=== PATIENT | male | born 1965 | race Two or more races ===

== ENCOUNTER 2019-10-08 19:27 | Emergency (ER) | payer OTHER ==
--- NOTE | 2019-10-08 20:31 | ER Document Report ---
ED Medical Screen (RME) - General Chief Complaint: Swollen Glands Stated Complaint: LUMPS RIGHT SIDE OF FACE AND UNDER THROAT Time Seen by Provider: 10/08/19 20:22 Notes: Patient is a 54-year-old male who presents to the emergency department with right neck and anterior neck swelling. Patient states that his throat is sore. He was seen in [place] on 02 October and was placed on antibiotics. They did a CT of the neck at that time. At that time, he only had swelling to the right side of his neck, but 2 days ago a new "lump" showed up at his anterior neck. Exam: Edema noted to right lateral neck near mandible/parotid gland area. I have greeted and performed a rapid initial assessment of this patient. A comprehensive ED assessment and evaluation of the patient, analysis of test results and completion of medical decision making process will be conducted by an additional ED providers. TRAVEL OUTSIDE OF THE [place] IN LAST 30 DAYS: No - Related Data Home Medications: probiotic. hydrocdone w acet 5-325. augmentin q12h. sulfa 2 tab daily Past Medical History - Social History Frequency of alcohol use: Social Physical Exam - Vital signs Vitals: Temp Pulse Resp BP Pulse Ox 98.7 F 72 20 126/63 H 97 10/08/19 20:10 10/08/19 20:10 10/08/19 20:10 10/08/19 20:10 10/08/19 20:10 Course - Vital Signs Vital signs: Temp Pulse Resp BP Pulse Ox 98.7 F 72 20 126/63 H 97 10/08/19 20:19 10/08/19 20:19 10/08/19 20:19 10/08/19 20:19 10/08/19 20:19
[2019-10-08 21:40] LABS: ABSOLUTE BASOPHILS # (AUTO) 0.1 10^3/uL (0.0-0.2); ABSOLUTE EOSINOPHILS # (AUTO) 0.2 10^3/uL (0.0-0.6); ABSOLUTE LYMPHOCYTES (AUTO) 1.4 10^3/uL (0.5-4.7); ABSOLUTE MONOCYTES (AUTO) 0.7 10^3/uL (0.1-1.4); ABSOLUTE NEUT (AUTO) 4.4 10^3/uL (1.7-8.2); BASOPHILS % (AUTO) 0.9 % (0-2); EOSINOPHILS % (AUTO) 3.3 % (0-6); HEMATOCRIT 37.9 % (37.9-51.0); HEMOGLOBIN 12.8 g/dL (13.5-17.0); LYMPHOCYTES % (AUTO) 20.1 % (13-45); MEAN CORPUSCULAR HEMOGLOBIN 30.2 pg (27.0-33.4); MEAN CORPUSCULAR HGB CONC 33.7 g/dL (32.0-36.0); MEAN CORPUSCULAR VOLUME 90 fl (80-97); MONOCYTES % (AUTO) 10.3 % (3-13); PLATELET COUNT 242 10^3/uL (150-450); RED BLOOD COUNT 4.24 10^6/uL (4.35-5.55); RED CELL DISTRIBUTION WIDTH 13.9 % (11.5-14.0); SEGMENTED NEUTROPHILS % (AUTO) 65.4 % (42-78); TOTAL CELLS COUNTED % (AUTO) 100 %; WHITE BLOOD COUNT 6.8 10^3/uL (4.0-10.5)
[2019-10-08 21:57] LABS: ALBUMIN 4.1 g/dL (3.5-5.0); ALKALINE PHOSPHATASE 89 U/L (38-126); ANION GAP 10 (5-19); ASPARTATE AMINO TRANSFERASE 26 U/L (17-59); BILIRUBIN,DIRECT 0.1 mg/dL (0.0-0.4); BILIRUBIN,TOTAL 0.3 mg/dL (0.2-1.3); BLOOD UREA NITROGEN 12 mg/dL (7-20); CALCIUM 8.9 mg/dL (8.4-10.2); CARBON DIOXIDE 27 mmol/L (22-30); CHLORIDE 102 mmol/L (98-107); GLUCOSE 121 mg/dL (75-110); TOTAL PROTEIN 7.6 g/dL (6.3-8.2)
--- NOTE | 2019-10-09 00:07 | ER Document Report ---
ED ENT - General Chief Complaint: Swollen Glands Stated Complaint: LUMPS RIGHT SIDE OF FACE AND UNDER THROAT Time Seen by Provider: 10/08/19 20:22 Primary Care Provider: JIA DAVILA DO [ASSOCIATE] - 10/12/19 Notes: Patient is a 54-year-old male that comes to the emergency department for chief complaint of swelling to the right side of his neck just below the edge of his mandible and underneath the ear. He states that he was seen in [place] on October 02, started on Augmentin and [place], he states he had a very sore throat at that time, he states the sore throat has resolved almost completely, he is eating and drinking normally, however the area over the right side of his neck/face has started swelling and becoming very significantly swollen over the past 3 days. He denies pain to the area unless he touches it. He denies fever/chills, nausea/vomiting, headache. He denies any other symptoms. He take s no daily prescribed medications, he denies any diagnosed medical history, he denies smoking or frequent alcohol. His son is at bedside. TRAVEL OUTSIDE OF THE [place] IN LAST 30 DAYS: No - Related Data Home Medications: probiotic. hydrocdone w acet 5-325. augmentin q12h. sulfa 2 tab daily Past Medical History - General Information source: Patient, Relative - Social History Smoking Status: Never Smoker Frequency of alcohol use: Social Lives with: Family Family History: Reviewed & Not Pertinent Patient has suicidal ideation: No Patient has homicidal ideation: No - Immunizations Hx Diphtheria, Pertussis, Tetanus Vaccination: Yes Review of Systems - Review of Systems Constitutional: No symptoms reported EENT: See HPI Cardiovascular: No symptoms reported Respiratory: No symptoms reported Gastrointestinal: No symptoms reported Genitourinary: No symptoms reported Male Genitourinary: No symptoms reported Musculoskeletal: No symptoms reported Skin: No symptoms reported Hematologic/Lymphatic: No symptoms reported Neurological/Psychological: No symptoms reported Physical Exam - Vital signs Vitals: Temp Pulse Resp BP Pulse Ox 98.7 F 72 20 126/63 H 97 10/08/19 20:10 10/08/19 20:10 10/08/19 20:10 10/08/19 20:10 10/08/19 20:10 - Notes Notes: GENERAL: Alert, interacts well. No acute distress. HEAD: Normocephalic, atraumatic. EYES: Pupils equal, round, and reactive to light. Extraocular movements intact. ENT: Oral mucosa moist, tongue midline. Oropharynx unremarkable. Airway patent. Nares patent, no nasal septal hematoma, TM's intact. There is a firm mildly tender swollen area just below the edge of the mandible on the right side at the neck. No nearby lymphadenopathy noted, no other concerning findings, no evidence of submandibular swelling. NECK: Full range of motion. Supple. Trachea midline. LUNGS: Clear to auscultation bilaterally, no wheezes, rales, or rhonchi. No respiratory distress. HEART: Regular rate and rhythm. No murmur ABDOMEN: Soft, non-tender. Non-distended. EXTREMITIES: Moves all 4 extremities spontaneously. No edema, normal radial and dorsalis pedis pulses bilaterally. No cyanosis. BACK: no cervical, thoracic, lumbar midline tenderness. No saddle anesthesia, normal distal neurovascular exam. Moves all extremities in full range of motion. NEUROLOGICAL: Alert and oriented x3. Normal speech. Cranial nerves II through XII grossly intact. PSYCH: Normal affect, normal mood. SKIN: Warm, dry, normal turgor. No rashes or lesions noted. Course - Re-evaluation Re-evalutation: On evaluation patient has a normal oral pharyngeal exam, he does have a large swollen area below the right mandible but this is mildly tender, does not appear indurated or fluctuant, there is no surrounding erythema or significant tend erness. No fever. CBC, chemistry unremarkable. I did review CT from triage, this shows indeterminate area in the same location which could be infectious or inflammatory but is not obviously not an abscess or mass. I discussed this with patient. I discussed with Dr. Kirkpatrick. Recommendation is to give patient a dose of dexamethasone, complete Augmentin, if symptoms resolve follow-up with primary care, if symptoms continue start the Bactrim and follow-up with ENT. I discussed this at length with patient and son at bedside. They state appreciation and agreement. Discussed return precautions, they state understanding and agreement. - Vital Signs Vital signs: Temp Pulse Resp BP Pulse Ox 98.1 F 63 16 107/64 96 10/09/19 03:11 10/09/19 03:11 10/09/19 03:11 10/09/19 03:11 10/09/19 03:11 - Laboratory Result Diagrams: 10/08/19 20:56 10/08/19 20:56 Laboratory results interpreted by me: 10/08/19 10/08/19 20:56 20:56 RBC 4.24 L Hgb 12.8 L Glucose 121 H Discharge - Discharge Clinical Impression: Neck swelling Condition: Stable Disposition: HOME, SELF-CARE Additional Instructions: Your imaging shows an inflamed area next to the saliva gland. We believe at this time this is a lymph node because of your recent throat infection, you have been treated for this, this should simply resolve. However if this continues to be swollen or tender please take the additional antibiotic and follow-up with the ENT referral. Come back if you worsen in any way including difficulty breathing or swallowing, worsening pain, increased swelling, fever, or any other concerning or worsening symptoms. Prescriptions: Sulfamethoxazole/Trimethoprim [Bactrim Ds Tablet] 1 each PO BID #14 tablet Forms: Return to Work Referrals: JIA DAVILA DO [ASSOCIATE] - 10/12/19
--- NOTE | 2019-10-09 01:45 | RADIOLOGY REPORT (SQ) ---
CT neck with contrast on 10/09/2019 at 12:39 AM CLINICAL INDICATION: Right neck swelling TECHNIQUE: Multiple axial images are obtained throughout the neck following the administration of IV contrast, 52 ml of Omnipaque 350 contrast was administered intravenously without complication. This exam was performed according to our departmental dose-optimization program, which includes automated exposure control, adjustment of the mA and/or kV according to patient size and/or use of iterative reconstruction technique. Total DLP is 427.35 mGy*cm. COMPARISON: None FINDINGS: There is evidence of calcified granulomatous disease in the upper lungs. The lung apices are otherwise clear. The epiglottis and airway is unremarkable. There is no prevertebral soft tissue swelling. Along the inferior edge of the right parotid gland likely external to the right parotid gland is small irregular soft tissue density abnormality with adjacent fat stranding just anterior to the right sternocleidomastoid muscle and deep to the platysma muscle. This measures approximately 1.4 x 1.0 x 1.4 cm. Due to the adjacent fat stranding favor this to be infectious or inflammatory and this may be reactive lymph node with mild adjacent cellulitis. Malignant process is not excluded but felt less likely. Would recommend treatment for infection and short-term follow-up to verify this improves or resolves. No other adenopathy is noted in the neck. No mucosal lesion is noted. No other neck mass or fluid collection is noted. The patient is status post a right mastoidectomy. No other bony abnormality is noted. IMPRESSION: Likely inferior to the right parotid gland is irregular soft tissue density abnormality with adjacent fat stranding. Favor this to be infectious or inflammatory in nature as above. Consider treatment for infection and short-term follow-up CT to verify this improves or resolves.
[2019-10-09] MEDS ORDERED: DEXAMETHASONE SOD PHOS INJ 10 MG/1 ML VIAL IV ONE (02:49)
[2019-10-09 03:13] VITALS: BP 107/64
== END 2019-10-09 03:11 | disposition home or self-care (01) ==
LOC: ER 19:27
DX: R22.1 Localized swelling, mass and lump, neck (principal); J02.9 Acute pharyngitis, unspecified; Z79.899 Other long term (current) drug therapy
CPT/HCPCS: 99283; 96374; 36415; 85025; 80053; 70491; J1100

== ENCOUNTER 2019-10-22 21:07 | Emergency (ER) | payer OTHER ==
--- NOTE | 2019-10-22 21:31 | ER Document Report ---
ED Medical Screen (RME) - General Stated Complaint: CHEST PAIN,STOMACH PAIN,BACK PAIN,THROAT PAIN Time Seen by Provider: 10/22/19 21:29 TRAVEL OUTSIDE OF THE [place] IN LAST 30 DAYS: No - HPI Notes: 10/22/19 21:50 54-year-old male to the emergency department with complaints of chest pain that radiates into his neck that began today. Denies associated shortness of breath. Does report that he felt a little bit dizzy with it. He states initially thought it was related to the cold. He states that when he would put on a jacket he would feel little bit better. However this afternoon it became more constant and also radiated into his abdomen. He states he has a history of anxiety but this feels a little bit different. He states he does not smoke. He does have a history of some elevated blood pressure but he is not on any blood pressure medicines. Patient is Georgian-speaking only and Martti was used to help interpret. Performed a medical screening exam on patient and determined he will need further evaluation and management by main side provider. I have placed initial orders to help expedite patient's care. Past Medical History - Immunizations Hx Diphtheria, Pertussis, Tetanus Vaccination: Yes Physical Exam - Vital signs Vitals: Temp Pulse Resp BP Pulse Ox 99.5 F 75 18 154/84 H 96 10/22/19 21:28 10/22/19 21:28 10/22/19 21:28 10/22/19 21:28 10/22/19 21:28 Course - Vital Signs Vital signs: Temp Pulse Resp BP Pulse Ox 99.5 F 75 18 154/84 H 96 10/22/19 21:28 10/22/19 21:28 10/22/19 21:28 10/22/19 21:28 10/22/19 21:28
--- NOTE | 2019-10-22 22:42 | RADIOLOGY REPORT (SQ) ---
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 COMPARISON: None. FINDINGS: Normal heart size without pulmonary edema. The lungs are clear. No pleural effusions or pneumothorax. IMPRESSION: No evidence of acute cardiopulmonary disease.
[2019-10-22 23:28] LABS: ABSOLUTE EOSINOPHILS # (AUTO) 0.2 10^3/uL (0.0-0.6); ABSOLUTE LYMPHOCYTES (AUTO) 1.4 10^3/uL (0.5-4.7); ABSOLUTE MONOCYTES (AUTO) 0.7 10^3/uL (0.1-1.4); ABSOLUTE NEUT (AUTO) 4.6 10^3/uL (1.7-8.2); BASOPHILS % (AUTO) 0.7 % (0-2); EOSINOPHILS % (AUTO) 2.9 % (0-6); HEMATOCRIT 38.1 % (37.9-51.0); HEMOGLOBIN 13.3 g/dL (13.5-17.0); LYMPHOCYTES % (AUTO) 19.6 % (13-45); MEAN CORPUSCULAR HEMOGLOBIN 31.1 pg (27.0-33.4); MEAN CORPUSCULAR VOLUME 89 fl (80-97); MONOCYTES % (AUTO) 9.9 % (3-13); PLATELET COUNT 274 10^3/uL (150-450); RED BLOOD COUNT 4.29 10^6/uL (4.35-5.55); RED CELL DISTRIBUTION WIDTH 13.7 % (11.5-14.0); SEGMENTED NEUTROPHILS % (AUTO) 66.9 % (42-78); TOTAL CELLS COUNTED % (AUTO) 100 %; WHITE BLOOD COUNT 6.9 10^3/uL (4.0-10.5)
[2019-10-22 23:43] LABS: ALBUMIN 4.3 g/dL (3.5-5.0); ALKALINE PHOSPHATASE 96 U/L (38-126); ANION GAP 12 (5-19); ASPARTATE AMINO TRANSFERASE 23 U/L (17-59); BILIRUBIN,DIRECT 0.1 mg/dL (0.0-0.4); BILIRUBIN,TOTAL 0.3 mg/dL (0.2-1.3); BLOOD UREA NITROGEN 11 mg/dL (7-20); CALCIUM 9.3 mg/dL (8.4-10.2); CARBON DIOXIDE 26 mmol/L (22-30); CHLORIDE 101 mmol/L (98-107); GLUCOSE 117 mg/dL (75-110); POTASSIUM 3.7 mmol/L (3.6-5.0); TOTAL PROTEIN 7.8 g/dL (6.3-8.2)
[2019-10-23] MEDS ORDERED: KETOROLAC TROMETHAMINE 60 MG/2 ML SDV IM ONE (02:27)
--- NOTE | 2019-10-23 02:37 | ER Document Report ---
ED General - General Chief Complaint: Chest Pain Stated Complaint: CHEST PAIN,STOMACH PAIN,BACK PAIN,THROAT PAIN Time Seen by Provider: 10/22/19 21:29 Notes: [employer] was used along with Google translate. 54-year-old male presents with chest pain and right upper quadrant abdominal pain. Patient has a history of hypertension. Patient states that the pain does radiate into his neck. Patient denies being a smoker. Patient states only past medical history is hypertension and anxiety. Patient denies any nausea/vomiting/diarrhea, shortness of breath, or fevers chills. TRAVEL OUTSIDE OF THE [place] IN LAST 30 DAYS: No - Related Data Allergies/Adverse Reactions: No Known Allergies Allergy (Unverified 10/23/19 03:14) Past Medical History - Social History Smoking Status: Former Smoker Frequency of alcohol use: Occasional Drug Abuse: None Family History: Reviewed & Not Pertinent Patient has suicidal ideation: No Patient has homicidal ideation: No - Immunizations Hx Diphtheria, Pertussis, Tetanus Vaccination: Yes Review of Systems - Review of Systems Notes: Constitutional: Negative for fever. HENT: Negative for sore throat. Eyes: Negative for visual changes. Cardiovascular: Positive for chest pain. Respiratory: Negative for shortness of breath. Gastrointestinal: Positive for abdominal pain. Negative for vomiting or diarrhea. Genitourinary: Negative for dysuria. Musculoskeletal: Negative for back pain. Skin: Negative for rash. Neurological: Negative for headaches, weakness or numbness. 10 point ROS negative except as marked above and in HPI. Physical Exam - Vital signs Vitals: Temp Pulse Resp BP Pulse Ox 99.5 F 75 18 154/84 H 96 10/22/19 21:28 10/22/19 21:28 10/22/19 21:28 10/22/19 21:28 10/22/19 21:28 - Notes Notes: GENERAL: Well-appearing, well-nourished and in no acute distress. HEAD: Atraumatic, normocephalic. EYES: Pupils equal round and reactive to light, extraocular movements intact, sclera anicteric, conjunctiva are normal. NECK: Normal range of motion, supple without lymphadenopathy or JVD. LUNGS: Breath sounds clear to auscultation bilaterally and equal. No wheezes rales or rhonchi. HEART: Regular rate and rhythm without murmurs, rubs or gallops. ABDOMEN: Soft, tenderness to right upper quadrant.. No guarding, no rebound. No masses appreciated. EXTREMITIES: Normal range of motion, no pitting or edema. No clubbing or cyanosis. NEUROLOGICAL: Cranial nerves II through XII grossly intact. Normal speech, normal gait. PSYCH: Normal mood, normal affect. SKIN: Warm, Dry, normal turgor, no rashes or lesions noted. Course - Re-evaluation Re-evalutation: 10/23/19 #1 Chest pain: Presentation of chest pain in an otherwise well appearing patient. Low clinical suspicion for ACS given clinical history, exam, EKG without ST elevations or depressions, and negative initial troponin. HEART score equal to 3. PE also seems unlikely given clinical history, absence of tachycardia or dyspnea. Patient is PERC criteria negative. CXR without evidence of pneumothorax or pneumonia. No widened mediastinum. Aortic dissection also seems unlikely given history, symmetric pulses, CXR, and vitals. HEART Score: 3 2 sets of troponins were negative. Chest pain in a patient without evidence of cardiac or other serious etiology on workup today. I discussed with patient that, based on their age, risk factors and emergency department testing today, the likelihood that their symptoms are related to a heart attack is very low (estimated risk of heart attack or over the next 30 days of less than 1%). The patient demonstrates decision making capacity and has verbalized an understanding of these risks to me. Based on this, the patient has chosen to follow-up as an outpatient. Usual chest pain return precautions reviewed. The patient states understanding and agreement with this plan. #2 Right upper quadrant pain: Alk phos is normal. Afebrile. No leukocytosis. Liver enzymes are also normal. Ultrasound of abdomen ordered to assess gallbladder. Ultrasound is negative except for possible fatty liver. 10/23/19 04:49 discussed all results with patient. Patient given follow-up with PCP and cardiology. Strict return precautions given. Patient voiced understanding and agrees with plan of care. - Vital Signs Vital signs: Temp Pulse Resp BP Pulse Ox 99.5 F 75 17 154/84 H 100 10/22/19 21:35 10/22/19 21:35 10/23/19 02:00 10/22/19 21:35 10/23/19 02:00 - Laboratory Result Diagrams: 10/22/19 22:50 10/22/19 22:50 Laboratory results interpreted by me: 10/22/19 10/22/19 22:50 22:50 RBC 4.29 L Hgb 13.3 L Glucose 117 H Discharge - Discharge Clinical Impression: Chest pain Qualifiers: Chest pain type: unspecified Qualified Code(s): R07.9 - Chest pain, unspecified Abdominal pain Qualifiers: Abdominal location: right upper quadrant Qualified Code(s): R10.11 - Right upper quadrant pain Condition: Stable Disposition: HOME, SELF-CARE Instructions: Chest Pain of Unclear Cause ([facility]), Abdominal Pain ([facility]) Additional Instructions: Your ultrasound showed a possible fatty liver however your gallbladder was normal. Your lab work including blood counts, electrolytes, liver function, gallbladder, pancreas, and cardiac enzymes are reassuring. Your chest x-ray did not show any pneumonias or other abnormalities. Please follow-up with the office analyst, Dr. Mojica, for outpatient work-up of your chest pain. Please follow-up with your primary care doctor or the clinic listed in 3 to 5 days. Return to ER for any worsening symptoms, including worsening chest pain, shortness of breath, fever, worsening abdominal pain, nausea or vomiting, diarrhea, constipation, or any other symptoms that are concerning to you. Holder ultrasonido mostr un posible hgado graso, sin embargo, holder vescula biliar era normal. Holder trabajo de laboratorio que incluye recuentos sanguneos, electrolitos, funcin heptica, vescula biliar, pncreas y enzimas cardacas es tranquilizador. Holder radiografa de trax no mostr neumonas u otras anormalidades. Nieves un seguimiento con el cardilogo, Dr. Mojica, para el tratamiento ambulatorio de holder dolor de pecho. Nieves un seguimiento con holder mdico de atencin primaria o la clnica incluida en 3 a 5 mayorga. Regrese a la parker de emergencias por cualquier sntoma que empeore, incluyendo empeoramiento del dolor en el pecho, dificultad para respirar, fiebre, empeoramiento del dolor abdominal, nuseas o vmitos, diarrea, estreimiento o cualquier otro sntoma que le preocupe. Forms: Return to Work Referrals: FRANKLIN MOJICA MD [ACTIVE STAFF] - Follow up in 1 week GUERDA BORGES MD [ACTIVE STAFF] - Follow up in 3-5 days Print Language: Upper Sorbian
--- NOTE | 2019-10-23 03:43 | RADIOLOGY REPORT (SQ) ---
Ultrasound right upper quadrant on 10/23/2019 at 2:56 AM CLINICAL INDICATION: Right upper quadrant pain COMPARISON: None FINDINGS: Multiple sonographic images are obtained throughout the right upper quadrant, both transverse and sagittal images are obtained. Very limited visualized pancreas appears unremarkable. Visualized aorta is unremarkable. There is mild increased echogenicity in the liver suggesting fatty infiltration. No focal liver lesion is noted. Right kidney shows no hydronephrosis. No free fluid is noted in the right upper quadrant. Gallbladder is not well distended. No gallstones, gallbladder wall thickening or pericholecystic fluid is noted. Common duct measures 4 mm which is within normal limits mitigating against obstruction of the biliary tree. IMPRESSION: Mild fatty infiltration of the liver, otherwise unremarkable.
[2019-10-23 05:29] VITALS: BP 121/73
--- NOTE | 2019-10-23 17:05 | EKG REPORT ---
SEVERITY:- ABNORMAL ECG - SINUS RHYTHM LEFT POSTERIOR FASCICULAR BLOCK : Confirmed by: Tommy Mojica 23-Oct-2019 17:04:33
== END 2019-10-23 05:29 | disposition home or self-care (01) ==
LOC: ER 21:07
DX: R07.9 Chest pain, unspecified (principal); R10.11 Right upper quadrant pain; M54.2 Cervicalgia; I10 Essential (primary) hypertension
CPT/HCPCS: 93005; 99285; 96372; 36415; 83690; 85025; 80053; 84484; 71046; 76705; 93010; J1885

== ENCOUNTER 2020-03-09 14:02 | Emergency (ER) | payer OTHER ==
--- NOTE | 2020-03-09 16:22 | ER Document Report ---
Entered by ADDY EUCEDA SCRIBE 03/09/20 1503 Acting as scribe for:RONNA DUNN MD ED General - General Chief Complaint: Cold Symptoms Stated Complaint: CONGESTION,SHORTNESS OF BREATH Time Seen by Provider: 03/09/20 14:26 Information source: Patient Notes: This 54 year old male patient presents to the emergency department today with chest wall pain when taking deep breaths. Patient is a [place] speaker and Tess is being used to translate. Patient states his nose is congested and he has a headache when he wears his mask with goggles. Patient states he works in construction and several people reported they tested positive for covid x3 weeks ago. Patient states work was put on hold until recently and believes he has come in contact with someone with covid. Patient denies any fever, chills, sore throat, or cough. TRAVEL OUTSIDE OF THE [place] IN LAST 30 DAYS: No - Related Data Allergies/Adverse Reactions: No Known Allergies Allergy (Unverified 10/23/19 03:14) Past Medical History - General Information source: Patient - Social History Smoking Status: Never Smoker Cigarette use (# per day): No Chew tobacco use (# tins/day): No Frequency of alcohol use: Rare Drug Abuse: None Family History: Reviewed & Not Pertinent Patient has homicidal ideation: No Psychiatric Medical History: Reports: Hx Anxiety - Immunizations Hx Diphtheria, Pertussis, Tetanus Vaccination: Yes Review of Systems - Review of Systems Constitutional: See HPI. denies: Chills, Fever EENT: See HPI, Nose congestion. denies: Throat pain Cardiovascular: See HPI, Chest pain Respiratory: See HPI. denies: Cough Gastrointestinal: No symptoms reported Genitourinary: No symptoms reported Male Genitourinary: No symptoms reported Musculoskeletal: No symptoms reported Skin: No symptoms reported Hematologic/Lymphatic: No symptoms reported Neurological/Psychological: See HPI, Headaches -: Yes All other systems reviewed and negative Physical Exam - Vital signs Vitals: Temp 98.7 F 03/09/20 14:02 - General General appearance: Appears well, Alert In distress: None - HEENT Head: Normocephalic, Atraumatic Eyes: Normal Pupils: PERRL - Respiratory Respiratory status: No respiratory distress Chest status: Other - Tenderness with palpation to the sternum. Breath sounds: Normal - Cardiovascular Rhythm: Regular Heart sounds: Normal auscultation, S1 appreciated, S2 appreciated Murmur: No - Abdominal Inspection: Normal Distension: No distension Bowel sounds: Normal Tenderness: Nontender - Extremities General upper extremity: Normal inspection. No: Edema General lower extremity: Normal inspection. No: Edema - Neurological Neuro grossly intact: Yes Cognition: Normal Orientation: AAOx4 - Psychological Associated symptoms: Normal affect, Normal mood - Skin Skin Temperature: Warm Skin Moisture: Dry Skin Color: Normal Course - Re-evaluation Re-evalutation: 03/09/20 16:16 Patient is resting comfortably not showing any signs of distress. 03/09/20 16:16 Discussed with patient that his reason for being in the emergency department today is because he wants to be tested for COVID-19 coronavirus inasmuch as he works on construction job and there have been other members on the construction team that 3 weeks ago tested positive. There had been a period where brief time that all staff was sent home but they have returned back to work and open for business again at this time. Patient reports that he has had a nasal congestion and some pain in his epigastric lower sternal area. Denies any fever chills cough sore throat. Patient has no comorbid of the medical problems. Patient does not present with symptoms or signs of coronavirus at this time. However patient has been exposed to this with other team members of the construction team. With that said coronavirus 19 test has been done and patient is instructed to go home and quarantine himself until he has further indication of this test results. Meanwhile I did discuss with patient that he should take Tylenol as needed for his chest wall pain and [id number] antihistamine which I will write in his discharge instructions. - Vital Signs Vital signs: Temp Pulse Resp BP Pulse Ox 98.7 F 03/09/20 14:02 03/09/20 16:16 Vital signs stable Discharge - Discharge Clinical Impression: Nasal sinus congestion, Chest wall pain, Exposure to COVID-19 virus Condition: Stable Disposition: HOME, SELF-CARE Instructions: Chest Wall Pain ([facility]) Additional Instructions: Nasal Sprays and Drops Decongestant nasal sprays and drops often give dramatic relief from congestion. They are often recommended for patients with sinus infection to assist with sinus drainage. Persons with high blood pressure should consult the doctor before using these nasal sprays. Afrin and Gurmeet-Synephrine are common [id number] preparations. They should not be used for more than three days, as "rebound" congestion can occur -- the congestion flares as the drug wears off. A way of dealing with this rebound congestion problem is to medicate only one nostril each time, allowing the other nostril to recover from the medicine's effects. When you no longer need the drug during the day, spray only one nostril each night. This helps you sleep well without severe rebound congestion. Call the doctor if you develop severe headache, palpitations, or chest pain. Also I recommend that you purchase Zyrtec 10 mg tablets and take 1 tablet daily as needed for nasal congestion.Chest Wall Pain Your chest pain has been diagnosed as coming from the chest wall. This is often caused by straining the muscles or joints in the chest during physical activity, direct trauma, coughing, or vigorous vomiting. Persons with arthritis are especially prone to this type of pain, due to inflammation of the cartilage joints near the breast bone. Occasionally, no cause can be found. Rest from strenuous physical activity. This kind of chest pain is usually made worse by movement of the chest. Depending on the symptoms, we may prescribe medicine for pain, muscle relaxation, and antiinflammatory effects. If the pain is new, and seems to be due to muscle strain, cold packs can help. Otherwise, apply gentle warmth to the painful area for 15 minutes every hour or two. You should contact the doctor immediately if things change. Further evaluation is needed if you develop a fever or cough, if the nature of the pain changes, or if you become short of breath. I recommend that you take Tylenol as needed for your chest wall pain. As discussed with your COVID-19 exposure you have been tested today for the COVID-19 virus due to your contact at work. Once you receive notification of your test result you may then make decisions regarding your quarantine status. Until you receive further information of your test results you are to remain quarantined which should be no greater than the next 1-2 weeks. I personally performed the services described in the documentation, reviewed and edited the documentation which was dictated to the scribe in my presence, and it accurately records my words and actions.
[2020-03-09 19:18] VITALS: BP 146/84
== END 2020-03-09 15:47 | disposition home or self-care (01) ==
LOC: ER 14:02
DX: R07.89 Other chest pain (principal); R07.1 Chest pain on breathing; R09.81 Nasal congestion; R51 Headache; Z20.828 Contact with and (suspected) exposure to other viral communicable diseases
CPT/HCPCS: 87635; 99283